=== PATIENT | male | born 1975 | race Caucasian/White ===

== ENCOUNTER 2023-07-23 11:15 | Day surgery (SDC) | payer BC ==
[~2023-07-23 11:15] MED LIST: Lactated Ringers 1,000 ML IV SCH
[2023-07-23] MEDS ORDERED: propofoL 50 ML ONE (13:10)
[2023-07-23] MEDS ORDERED: Lactated Ringers 1,000 ML IV SCH (13:45)
[2023-07-23] MEDS ORDERED: dexmedeTOMIDine HCl 200 MCG/2 ML SDV ONE (14:22)
== END 2023-07-23 14:10 | disposition home or self-care (01) ==
LOC: MW.SDS 11:15
PROVIDERS: ATTEND Surgery
DX: Z12.11 Encounter for screening for malignant neoplasm of colon (principal); K63.89 Other specified diseases of intestine; K62.1 Rectal polyp; I10 Essential (primary) hypertension; F32.A Depression, unspecified; F41.9 Anxiety disorder, unspecified; E66.9 Obesity, unspecified; Z68.42 Body mass index [BMI] 45.0-49.9, adult; Z72.0 Tobacco use; Z79.899 Other long term (current) drug therapy; Z91.018 Allergy to other foods
CPT/HCPCS: 45380; J2704; J7120; J3490